=== PATIENT | female | born 1965 | race Asian ===

== ENCOUNTER 2016-11-17 13:30 | Emergency (ER) | payer SELFPAY ==
[~2016-11-17] VITALS: Ht 162.6 cm; Wt 72.6 kg
[~2016-11-17 13:30] MED LIST: ADVAIR 250-501 EACH INH; ALBUTEROL SULF8.5 GM INH; ATENOLOL50 MG ORAL; AZITHROMYCIN250 MG ORAL; CEPHALEXIN250 MG ORAL; CEPHALEXIN500 MG ORAL; PREDNISOLO15 MG/5 M1 ORAL; PREDNISONE20 MG ORAL
[2016-11-17] MEDS ORDERED: ADVAIR 100-501 EACH INH ×2 (13:43→14:38)
[2016-11-17] MEDS ORDERED: PredniSONE 20mg tab ORAL ONE (13:45)
[2016-11-17] MEDS ORDERED: Albuterol ud Inhalation ONE (13:47)
[2016-11-17] MEDS: Albuterol ud Inhalation HHN SCH ×3 (13:50→14:40)
[2016-11-17] MEDS: Ipratropium 0.02% Inh Soln 2.5ml UD HHN SCH ×3 (13:50→14:40)
[2016-11-17 14:00] VITALS: BP 136/90
[2016-11-17] MEDS ORDERED: VENTOLIN HFA18 GM INH (14:38)
[2016-11-17] MEDS ORDERED: ACETAMINOPHEN-1 EAC1 ORAL (14:38)
[2016-11-17] MEDS ORDERED: GUAIFENESIN-CO118 M1 ORAL (14:38)
[2016-11-17] MEDS ORDERED: PREDNISONE20 MG ORAL (14:38)
[2016-11-17] MEDS ORDERED: Tylenol #3 tab (300mg/30mg) ORAL ONE (14:45)
[2016-11-17 15:21] VITALS: BP 174/82
--- NOTE | 2016-11-17 16:47 | Diagnostic Imaging Report ---
Indication: SOB, cough Technique: One view of the chest Comparison: 03/09/2016 Findings: Lungs and pleural spaces are clear. The heart is borderline enlarged. No significant change Impression: No acute process
--- NOTE | 2016-11-20 19:25 | Emergency Room Report ---
History of Present Illness General Chief Complaint: Dyspnea/Respdistress Source: Patient Present Illness HPI 51 YO F with known asthma, non-smoker presents walk-in with chest tightness for 2-3 days associated with rhinorrhea and dry cough. Denies fever/chills, SOB. Has been using home inhaler with minimal improvement. Is supposed to take Advair BID but "only uses it when I need to." Denies previous intubation or BIPAP or admission for asthma. Allergies: Coded Allergies: No Known Allergies (Unverified , 03/09/16) Patient History Past Medical History: asthma Past Surgical History: none Pertinent Family History: none Social History: Denies: alcohol use, drug use, smoking Now: No Immunizations: UTD Reviewed Nursing Documentation: PMH: Agreed, PSxH: Agreed Nursing Documentation-PMH Past Medical History: No History, Except For Hx Cardiac Problems: Yes Hx Hypertension: Yes Hx Asthma: Yes Review of Systems All Other Systems: negative except mentioned in HPI Physical Exam Vital Signs Date Time Temp Pulse Resp B/P Pulse Ox O2 Delivery O2 Flow Rate FiO2 11/17/16 13:40 97.0 53 18 174/82 96 Room Air 11/17/16 13:58 21 Sp02 EP Interpretation: reviewed, normal General Appearance: normal inspection, well appearing, alert, GCS 15, non-toxic , mild distress Head: normocephalic, atraumatic Eyes: bilateral eye EOMI, bilateral eye PERRL ENT: normal ENT inspection, hearing grossly normal, normal voice Neck: normal inspection, full range of motion, supple, no bony tend Respiratory: normal inspection, no respiratory distress, no retraction, no accessory muscle use, wheezing Cardiovascular #1: regular rate, rhythm, no edema Gastrointestinal: normal inspection, normal bowel sounds, non tender, soft, no guarding, no hernia Genitourinary: no CVA tenderness Musculoskeletal: normal inspection, back normal, normal range of motion, Lorna' s Sign negative Neurologic: normal inspection, alert, responsive, speech normal Psychiatric: normal inspection, judgement/insight normal, mood/affect normal Skin: normal inspection, normal color, no rash Medical Decision Making Diagnostic Impression: Primary Impression: Asthma exacerbation Additional Impression: Upper respiratory infection Qualified Codes: J06.9 - Acute upper respiratory infection, unspecified; B97.89 - Other viral agents as the cause of diseases classified elsewhere ER Course Acute asthma exacerbation. VSS. Afebrile. No hypoxia on arrival. Improved with duonebs, prednisone Feels much better Lungs with only faint end-expiratory wheeze on discharge CXR negative for PNA URI likely trigger Rx albuterol and advair reflled. STRONGLY ENCOURAGED DAILY ADVAIR USE Rx prednisone PMD followup DC home Chest X-Ray Diagnostic Results EP Interpretation: Yes Findings: no consolidation, no effusion, no pneumothorax, no acute cardiopulmonary disease Number of Views: 1 Last Vital Signs Date Time Temp Pulse Resp B/P Pulse Ox O2 Delivery O2 Flow Rate FiO2 11/17/16 15:21 97.0 16 174/82 100 Room Air 21 11/17/16 14:25 52 Status: improved Disposition: HOME, SELF-CARE Condition: Improved Scripts Prednisone* (PREDNISONE*) 20 Mg Tablet 20 MG ORAL BID for 3 Days, #6 TAB 0 Refills Prov: FREDA MADRID M.D. 11/17/16 Guaifenesin/Codeine Phos* (ROBITUSSIN AC*) 118 Ml Liquid 5 ML ORAL Q6H Y for For Cough, #118 ML 0 Refills Prov: FREDA MADRID M.D. 11/17/16 Acetaminophen With Codeine (T#3) (TYLENOL #3 TAB*) Y Tab 1 TAB ORAL Q8H Y for For Pain, #20 TAB Prov: FREDA MADRID M.D. 11/17/16 Fluticasone/Salmeterol (Advair 100-50 Diskus) 1 Each Blst.w.dev 1 PUFF INH TWICE A DAY for 30 Days, #1 EA Prov: FREDA MADRID M.D. 11/17/16 Albuterol Sulfate (VENTOLIN HFA) 18 Gm Hfa.aer.ad 2 PUFFS INH EVERY 6 HOURS, #18 GM 0 Refills Prov: FREDA MADRID M.D. 11/17/16 Referrals: NOT CHOSEN IPA/,REFERRING (PCP) Patient Instructions: Asthma, Adult Additional Instructions: - Take Advair EVERY DAY, TWICE A DAY - Use ventolin pump only as needed for cough, shortness of breath, wheezing - Take Tyelnol with codeine and robitussin as needed for chest congestion, painful cough - Take prednisone twice daily for 3 days - Follow up with your doctor in 2-3 days FREDA MADRID M.D. Nov 20, 2016 19:25
== END 2016-11-17 15:23 | disposition home or self-care (01) ==
LOC: EMR 14:05
DX: J45.901 Unspecified asthma with (acute) exacerbation (principal); J06.9 Acute upper respiratory infection, unspecified; I10 Essential (primary) hypertension
CPT/HCPCS: 71010; 94640; 94664; 99284